=== PATIENT | male | born 1975 | race Asian ===

== ENCOUNTER 2021-08-08 12:49 | Inpatient (IN) ==
[2021-08-08 14:18] LABS: ABS Basophils 0.1 10^3/ul (0-0.2); ABS Lymphocytes 2.2 10^3/ul (1.0-4.8); ABS Monocytes 0.7 10^3/ul (0-0.8); ABS Neutrophils 10.3 10^3/ul (1.5-7.7); Eosinophil % 0.1 %; Hematocrit 29 % (42-52); Hemoglobin 9.8 g/dL (14.0-18.0); Lymphocyte % 16.4 %; Mean Corpuscular HGB Conc 34 g/dL (31-36); Mean Corpuscular Hemoglobin 32 pg (27-31); Mean Corpuscular Volume 94 fL (80-94); Mean Platelet Volume 7.3 fL (7.4-10.4); Nucleated Red Blood Cells % 0.2; Platelet Count 149 10^3/uL (150-450); Red Blood Count 3.08 10^6 /uL (4.18-5.48); Red Cell Distribution Width 17 % (10-15); White Blood Count 13.2 10^3/uL (3.5-10.8)
[2021-08-08 14:23] LABS: INR 1.66 (0.86-1.15)
[2021-08-08 14:37] LABS: ALT 70 U/L (7-52); AST 476 U/L (13-39); Albumin/Globulin Ratio 0.6 (1-3); Alkaline Phosphatase 275 U/L (35-149); Anion Gap 18 mmol/L (2-11); Blood Urea Nitrogen 5 mg/dL (6-24); CO2 Carbon Dioxide 22 mmol/L (22-32); Calcium 7.5 mg/dL (8.6-10.3); Chloride 81 mmol/L (101-111); Globulin 5.3 g/dL (2-4); Glucose 238 mg/dL (70-100); Potassium 3.7 mmol/L (3.5-5.0); Sodium 121 mmol/L (135-145); Total Protein 8.3 g/dL (6.4-8.9); eGFR CKD-EPI 117.3 (>60)
[2021-08-08 14:56] LABS: Acetaminophen < 15 mcg/mL; Alcohol, S 320 mg/dL (<13)
[2021-08-08 15:02] LABS: Indirect Bilirubin 8.6 mg/dL (0.3-1.0)
[2021-08-08] MEDS ORDERED: Iodixanol (CONTRAST) 320 MG/ML 100 ML SDV IV ONE (15:29)
[2021-08-08 15:58] LABS: Total Bilirubin 18.4 mg/dL (0.2-1.0)
[2021-08-08] MEDS ORDERED: Ondansetron 4 mg VIAL 2 MG/ML 2 ml VIAL IV PRN (17:51)
[2021-08-08] MEDS ORDERED: Thiamine 100 MG/ML 2 ml VIAL 100 MG, Folic Acid IV 1 MG, Multiple Vitamin IV ADULT 10 M... IV ONE (18:00)
[2021-08-08] MEDS ORDERED: NS 0.9% 1000 ml BAG 1,000 ML IV SCH (18:00)
[2021-08-08] MEDS ORDERED: Dextrose 50% Syringe 50 ml 25 GM/50 ML SYRINGE IV PUSH PRN (18:45)
[2021-08-08] MEDS ORDERED: PrednisoLONE 3 MG/ML ORAL.SOLU 15 MG/5 ML ORAL.SOLN PO SCH (20:30)
[2021-08-08 20:37] LABS: TSH Ultra Thyroid Stim Horm 8.99 mcIU/mL (0.34-5.60)
[2021-08-08 20:43] LABS: Anion Gap 16 mmol/L (2-11); Blood Urea Nitrogen 5 mg/dL (6-24); CO2 Carbon Dioxide 23 mmol/L (22-32); Calcium 7.2 mg/dL (8.6-10.3); Chloride 83 mmol/L (101-111); Glucose 214 mg/dL (70-100); Potassium 3.7 mmol/L (3.5-5.0); Sodium 122 mmol/L (135-145); eGFR CKD-EPI 116.2 (>60)
[2021-08-08] MEDS ORDERED: Phytonadione Oral Solution 5 MG/25 ML UDC PO ONE (20:44)
[2021-08-08 20:48] LABS: Folate 3.89 ng/mL (5.90-24.80)
[2021-08-08 20:49] LABS: Vitamin B12 > 1450 pg/mL (180-914)
[2021-08-08 21:10] LABS: Phosphorus < 1.0 mg/dL (2.5-5.0)
[2021-08-08 21:16] LABS: Magnesium 1.9 mg/dL (1.9-2.7)
[2021-08-08] MEDS: Lactulose 30 ml UDC PO SCH (21:26)
[2021-08-08] MEDS: Pantoprazole VIAL 40 MG VIAL IV SCH (21:26)
[2021-08-08] MEDS: cefTRIAXone 2 GM ADDV.VIAL 2 GM in NS 0.9% 100 ml BAG 100 ML IV SCH (21:26)
[2021-08-08] MEDS ORDERED: Potassium Phosphate IV 15 MMOLE in NS 0.9% 250 ml 250 ML IVPB ONE ×2 (21:27→21:28)
[2021-08-08] MEDS ORDERED: NS 0.9% 250 ml 0 ML ONE (21:37)
[2021-08-08 21:41] LABS: Hepatitis B Surface Antigen Nonreactive (Nonreactive)
[2021-08-08 21:46] LABS: Hepatitis A Ab IgM Negative (Negative)
[2021-08-08 21:47] LABS: Hepatitis B Core IgM Nonreactive (Nonreactive)
[2021-08-08 21:59] LABS: Hepatitis C Antibody Negative (Negative)
[2021-08-08] MEDS ORDERED: Potassium Phosphate IV 30 MMOLE in NS 0.9% 250 ml 250 ML IVPB ONE (22:00)
[2021-08-08 22:39] LABS: Ferritin 3844.2 ng/mL (24-336)
[2021-08-09 06:22] LABS: INR 1.79 (0.86-1.15)
[2021-08-09 06:25] LABS: Hematocrit 23 % (42-52); Hemoglobin 7.9 g/dL (14.0-18.0); Mean Corpuscular HGB Conc 34 g/dL (31-36); Mean Corpuscular Hemoglobin 32 pg (27-31); Mean Corpuscular Volume 94 fL (80-94); Mean Platelet Volume 8.1 fL (7.4-10.4); Platelet Count 133 10^3/uL (150-450); Red Cell Distribution Width 17 % (10-15)
[2021-08-09 06:37] LABS: Albumin 2.5 g/dL (3.2-5.2); CO2 Carbon Dioxide 19 mmol/L (22-32); Calcium 6.7 mg/dL (8.6-10.3); Chloride 84 mmol/L (101-111)
[2021-08-09 06:42] LABS: ALT 56 U/L (7-52); Albumin/Globulin Ratio 0.6 (1-3); Alkaline Phosphatase 213 U/L (35-149); Anion Gap 14 mmol/L (2-11); Blood Urea Nitrogen 4 mg/dL (6-24); Globulin 4.5 g/dL (2-4); Glucose 231 mg/dL (70-100); Sodium 117 mmol/L (135-145); eGFR CKD-EPI 119.7 (>60)
[2021-08-09 06:44] LABS: ABS Basophils 0.1 10^3/ul (0-0.2); ABS Lymphocytes 1.7 10^3/ul (1.0-4.8); ABS Monocytes 0.3 10^3/ul (0-0.8); ABS Neutrophils 9.9 10^3/ul (1.5-7.7); Lymphocyte % 13.9 %; Nucleated Red Blood Cells % 0.2
[2021-08-09] MEDS ORDERED: Flu vaccine *QUAD* 2021-22* 0.5 ML SYRINGE IM ONE (09:00)
[2021-08-09] MEDS ORDERED: NS 0.9% 1000 ml BAG 1,000 ML IV SCH (09:06)
[2021-08-09] MEDS: Multivitamins/Minerals TAB PO SCH (09:27)
[2021-08-09] MEDS: Lactulose 30 ml UDC PO SCH ×2 (09:29→22:03)
[2021-08-09] MEDS: Pantoprazole VIAL 40 MG VIAL IV SCH ×2 (09:30→23:03)
[2021-08-09] MEDS: Calcium Carb (TUMS) 500 mg CHEW TAB PO SCH (10:31)
[2021-08-09] MEDS ORDERED: Phytonadione Oral Solution 5 MG/25 ML UDC PO ONE (10:44)
[2021-08-09 11:43] LABS: Hepatitis B Surface Ab Indeterminate (Immune)
[2021-08-09 13:55] LABS: Body Fluid Appearance Cloudy; Body Fluid Color Yellow; Body Fluid Source Peritonial Fluid
[2021-08-09 14:17] LABS: Body Fluid WBC 81 /mcL
[2021-08-09 14:27] LABS: Body Fluid Mono 62 %; Body Fluid Other Cells 11; Body Fluid Total Cells Counted 200
[2021-08-09 15:38] LABS: Potassium, Whole Blood 4.7 mmol/L (3.4-4.5)
[2021-08-09 15:58] LABS: Blood Urea Nitrogen 5 mg/dL (6-24); CO2 Carbon Dioxide 24 mmol/L (22-32); Chloride 85 mmol/L (101-111); Glucose 291 mg/dL (70-100); Potassium 4.3 mmol/L (3.5-5.0); eGFR CKD-EPI 106.4 (>60)
[2021-08-09 16:03] LABS: Hematocrit 25 % (42-52); Hemoglobin 8.3 g/dL (14.0-18.0); Mean Corpuscular HGB Conc 34 g/dL (31-36); Mean Corpuscular Hemoglobin 31 pg (27-31); Mean Corpuscular Volume 93 fL (80-94); Mean Platelet Volume 7.7 fL (7.4-10.4); Platelet Count 133 10^3/uL (150-450); Red Blood Count 2.65 10^6 /uL (4.18-5.48); Red Cell Distribution Width 18 % (10-15); White Blood Count 11.7 10^3/uL (3.5-10.8)
[2021-08-09 16:04] LABS: LDH 289 U/L (140-271)
[2021-08-09 16:10] LABS: Anion Gap 10 mmol/L (2-11); Magnesium 1.7 mg/dL (1.9-2.7); Phosphorus < 1.0 mg/dL (2.5-5.0); Sodium 119 mmol/L (135-145)
[2021-08-09 16:25] LABS: Urine Appearance Clear; Urine Bacteria 1+ (Absent); Urine Bilirubin 2+ (Negative); Urine Blood 2+ (Negative); Urine Color Amber; Urine Glucose 3+(>=500 mg/dL) (Negative); Urine Ketones 1+ (Negative); Urine Nitrite Negative (Negative); Urine Protein 2+(100 mg/dL) (Negative); Urine Red Blood Cell 2+(6-10/hpf) (Absent); Urine Specific Gravity 1.029 (1.002-1.030); Urine Squamous Epithelial Cell Present (Absent); Urine Urobilinogen Positive (Negative); Urine White Blood Cell 1+(6-10/hpf) (Absent)
[2021-08-09] MEDS ORDERED: Potassium & Sodium Phos 250 mg = 1 PACKET PO ONE (16:28)
[2021-08-09] MEDS ORDERED: Magnesium Sulfate IV 3 GM in NS 0.9% 100 ml BAG 100 ML IVPB ONE (16:28)
[2021-08-09] MEDS ORDERED: Potassium Phosphate IV 15 MMOLE in NS 0.9% 250 ml 250 ML IVPB ONE (17:00)
[2021-08-09 17:19] LABS: ABS Lymphocytes 0.8 10^3/ul (1.0-4.8); ABS Neutrophils 10.2 10^3/ul (1.5-7.7)
[2021-08-09] MEDS: cefTRIAXone 2 GM ADDV.VIAL 2 GM in NS 0.9% 100 ml BAG 100 ML IV SCH (23:03)
[2021-08-09 23:25] LABS: Anion Gap 8 mmol/L (2-11); Blood Urea Nitrogen 5 mg/dL (6-24); CO2 Carbon Dioxide 26 mmol/L (22-32); Calcium 6.9 mg/dL (8.6-10.3); Chloride 88 mmol/L (101-111); Glucose 244 mg/dL (70-100); Sodium 122 mmol/L (135-145); eGFR CKD-EPI 112.7 (>60)
[2021-08-09 23:28] LABS: Magnesium 2.5 mg/dL (1.9-2.7)
[2021-08-09 23:30] LABS: Phosphorus < 1.0 mg/dL (2.5-5.0)
[2021-08-10] MEDS ORDERED: Potassium Phosphate IV 30 MMOLE in NS 0.9% 250 ml 250 ML IVPB ONE (00:30)
[2021-08-10] MEDS ORDERED: Calcium Gluconate 4 GM in NS 0.9% 250 ml 250 ML IVPB ONE (01:51)
[2021-08-10] MEDS ORDERED: NS 0.9% 1000 ml BAG 1,000 ML IV SCH (01:52)
[2021-08-10 06:49] LABS: Albumin 2.4 g/dL (3.2-5.2); Albumin/Globulin Ratio 0.6 (1-3); Calcium 6.6 mg/dL (8.6-10.3); Phosphorus 1.7 mg/dL (2.5-5.0); Potassium 3.7 mmol/L (3.5-5.0); Total Protein 6.4 g/dL (6.4-8.9); eGFR CKD-EPI 113.2 (>60)
[2021-08-10 06:57] LABS: Total Bilirubin 17.4 mg/dL (0.2-1.0)
[2021-08-10 07:04] LABS: Hematocrit 24 % (42-52); Hemoglobin 8.3 g/dL (14.0-18.0); Mean Corpuscular HGB Conc 35 g/dL (31-36); Mean Corpuscular Hemoglobin 33 pg (27-31); Mean Corpuscular Volume 95 fL (80-94); Mean Platelet Volume 7.8 fL (7.4-10.4); Platelet Count 123 10^3/uL (150-450); Red Blood Count 2.51 10^6 /uL (4.18-5.48); Red Cell Distribution Width 18 % (10-15); White Blood Count 10.6 10^3/uL (3.5-10.8)
[2021-08-10 07:10] LABS: Magnesium 2.3 mg/dL (1.9-2.7)
[2021-08-10] MEDS ORDERED: Potassium Phosphate IV 15 MMOLE in NS 0.9% 250 ml 250 ML IVPB ONE ×3 (07:30→19:47)
[2021-08-10 08:23] LABS: Anisocytosis 2+
[2021-08-10 08:25] LABS: ABS Lymphocytes 0.5 10^3/ul (1.0-4.8); ABS Neutrophils 8.8 10^3/ul (1.5-7.7)
[2021-08-10] MEDS ORDERED: Phytonadione Oral Solution 5 MG/25 ML UDC PO SCH (09:00)
[2021-08-10] MEDS: Pantoprazole VIAL 40 MG VIAL IV SCH ×2 (09:54→20:18)
[2021-08-10] MEDS: Lactulose 30 ml UDC PO SCH ×2 (09:54→20:17)
[2021-08-10] MEDS: Calcium Carb (TUMS) 500 mg CHEW TAB PO SCH (09:58)
[2021-08-10] MEDS: Multivitamins/Minerals TAB PO SCH (09:58)
[2021-08-10 11:48] LABS: % Iron Saturation > 90 % (14 - 50); Total Iron Binding Capacity 92 mcg/dL (250 - 400); Transferrin 78 mg/dL (200 - 360)
[2021-08-10 18:34] LABS: Anion Gap 9 mmol/L (2-11); Blood Urea Nitrogen 7 mg/dL (6-24); CO2 Carbon Dioxide 25 mmol/L (22-32); Calcium 7.2 mg/dL (8.6-10.3); Chloride 93 mmol/L (101-111); Glucose 203 mg/dL (70-100); Potassium 3.7 mmol/L (3.5-5.0); Sodium 127 mmol/L (135-145)
[2021-08-10 18:38] LABS: Magnesium 2.2 mg/dL (1.9-2.7); Phosphorus < 1.0 mg/dL (2.5-5.0)
[2021-08-10] MEDS: Potassium & Sodium Phos 250 mg = 1 PACKET PO SCH (20:18)
[2021-08-10] MEDS: cefTRIAXone 2 GM ADDV.VIAL 2 GM in NS 0.9% 100 ml BAG 100 ML IV SCH (20:22)
[2021-08-11 07:27] LABS: ABS Basophils 0.1 10^3/ul (0-0.2); ABS Lymphocytes 1.1 10^3/ul (1.0-4.8); ABS Monocytes 0.9 10^3/ul (0-0.8); ABS Neutrophils 9.4 10^3/ul (1.5-7.7); Eosinophil % 0.2 %; Hematocrit 27 % (42-52); Lymphocyte % 9.2 %; Mean Corpuscular HGB Conc 34 g/dL (31-36); Mean Corpuscular Hemoglobin 33 pg (27-31); Mean Corpuscular Volume 98 fL (80-94); Mean Platelet Volume 7.7 fL (7.4-10.4); Nucleated Red Blood Cells % 0.4; Platelet Count 138 10^3/uL (150-450); Red Blood Count 2.74 10^6 /uL (4.18-5.48); Red Cell Distribution Width 19 % (10-15); White Blood Count 11.4 10^3/uL (3.5-10.8)
[2021-08-11 07:46] LABS: Albumin 2.6 g/dL (3.2-5.2); Albumin/Globulin Ratio 0.6 (1-3); Calcium 7.1 mg/dL (8.6-10.3); Globulin 4.7 g/dL (2-4); Phosphorus 1.2 mg/dL (2.5-5.0); Potassium 3.7 mmol/L (3.5-5.0); Total Protein 7.3 g/dL (6.4-8.9); eGFR CKD-EPI 108.8 (>60)
[2021-08-11 08:17] LABS: Magnesium 2.2 mg/dL (1.9-2.7)
[2021-08-11] MEDS: Potassium & Sodium Phos 250 mg = 1 PACKET PO SCH ×4 (09:00→19:39)
[2021-08-11] MEDS: Lactulose 30 ml UDC PO SCH ×2 (09:00→19:39)
[2021-08-11] MEDS: Multivitamins/Minerals TAB PO SCH (09:02)
[2021-08-11] MEDS: Pantoprazole VIAL 40 MG VIAL IV SCH (09:02)
[2021-08-11] MEDS: Calcium Carb (TUMS) 500 mg CHEW TAB PO SCH (09:02)
[2021-08-11] MEDS ORDERED: Potassium Phosphate IV 15 MMOLE in NS 0.9% 250 ml 250 ML IVPB ONE ×2 (10:15→19:54)
[2021-08-11 11:25] LABS: INR 1.88 (0.86-1.15)
[2021-08-11 12:57] LABS: Urine Appearance Turbid; Urine Bilirubin 2+ (Negative); Urine Blood 1+ (Negative); Urine Color Amber; Urine Glucose 2+(150 mg/dL) (Negative); Urine Ketones Trace (Negative); Urine Nitrite Negative (Negative); Urine Protein 2+(100 mg/dL) (Negative); Urine Urobilinogen Positive (Negative)
[2021-08-11 13:19] LABS: Urine Bacteria 3+ (Absent); Urine Red Blood Cell 3+(>10/hpf) (Absent); Urine Squamous Epithelial Cell Present (Absent); Urine White Blood Cell Trace(0-5/hpf) (Absent)
[2021-08-11 13:25] LABS: Lactate Dehydrogenase, BF 76 U/L
[2021-08-11 15:02] LABS: Glucose, BF 272 mg/dL
[2021-08-11 15:05] LABS: Fluid Type, Protein, Total PERITONEAL; Total Protein, BF 1.3 g/dL
[2021-08-11] MEDS ORDERED: Furosemide 20 mg/2 ml IV VIAL IV ONE (17:50)
[2021-08-11] MEDS ORDERED: Iodixanol (CONTRAST) 320 MG/ML 100 ML SDV IV ONE (18:22)
[2021-08-11 19:40] LABS: Calcium 6.9 mg/dL (8.6-10.3); Phosphorus 1.1 mg/dL (2.5-5.0); Potassium 3.6 mmol/L (3.5-5.0); eGFR CKD-EPI 107.2 (>60)
[2021-08-11] MEDS: cefTRIAXone 2 GM ADDV.VIAL 2 GM in NS 0.9% 100 ml BAG 100 ML IV SCH (19:43)
[2021-08-12 07:13] LABS: Albumin 2.4 g/dL (3.2-5.2); Albumin/Globulin Ratio 0.6 (1-3); Calcium 6.9 mg/dL (8.6-10.3); Globulin 4.2 g/dL (2-4); Phosphorus 1.9 mg/dL (2.5-5.0); Potassium 3.8 mmol/L (3.5-5.0); Total Protein 6.6 g/dL (6.4-8.9); eGFR CKD-EPI 109.2 (>60)
[2021-08-12 07:23] LABS: Total Bilirubin 21.8 mg/dL (0.2-1.0)
[2021-08-12] MEDS: Multivitamins/Minerals TAB PO SCH (08:32)
[2021-08-12] MEDS: Potassium & Sodium Phos 250 mg = 1 PACKET PO SCH ×4 (08:32→20:06)
[2021-08-12] MEDS: Calcium Carb (TUMS) 500 mg CHEW TAB PO SCH (08:32)
[2021-08-12] MEDS: Lactulose 30 ml UDC PO SCH ×2 (08:32→20:08)
[2021-08-12 11:47] LABS: Albumin, BF 0.6 g/dL; Fluid Type, Albumin PERITONEAL
[2021-08-12 12:31] LABS: ABS Basophils 0.1 10^3/ul (0-0.2); ABS Lymphocytes 1.1 10^3/ul (1.0-4.8); Eosinophil % 0.4 %; Hematocrit 25 % (42-52); Hemoglobin 8.5 g/dL (14.0-18.0); Lymphocyte % 9.2 %; Mean Corpuscular HGB Conc 34 g/dL (31-36); Mean Corpuscular Hemoglobin 34 pg (27-31); Mean Corpuscular Volume 99 fL (80-94); Mean Platelet Volume 7.5 fL (7.4-10.4); Nucleated Red Blood Cells % 0.2; Platelet Count 128 10^3/uL (150-450); Red Blood Count 2.52 10^6 /uL (4.18-5.48); Red Cell Distribution Width 21 % (10-15); White Blood Count 12.2 10^3/uL (3.5-10.8)
[2021-08-12 18:33] LABS: Free T4 0.83 ng/dL (0.61-1.12)
[2021-08-12] MEDS: cefTRIAXone 2 GM ADDV.VIAL 2 GM in NS 0.9% 100 ml BAG 100 ML IV SCH (20:09)
[2021-08-13 05:50] LABS: ABS Eosinophils 0.1 10^3/ul (0-0.6); ABS Lymphocytes 1.2 10^3/ul (1.0-4.8); ABS Neutrophils 10.2 10^3/ul (1.5-7.7); Eosinophil % 0.7 %; Hematocrit 24 % (42-52); Hemoglobin 7.9 g/dL (14.0-18.0); Lymphocyte % 9.7 %; Mean Corpuscular HGB Conc 33 g/dL (31-36); Mean Corpuscular Hemoglobin 33 pg (27-31); Mean Corpuscular Volume 100 fL (80-94); Mean Platelet Volume 7.5 fL (7.4-10.4); Nucleated Red Blood Cells % 0.1; Platelet Count 126 10^3/uL (150-450); Red Blood Count 2.39 10^6 /uL (4.18-5.48); Red Cell Distribution Width 22 % (10-15); White Blood Count 12.5 10^3/uL (3.5-10.8)
[2021-08-13 06:06] LABS: Albumin 2.3 g/dL (3.2-5.2); Albumin/Globulin Ratio 0.5 (1-3); Calcium 6.6 mg/dL (8.6-10.3); Globulin 4.3 g/dL (2-4); Potassium 3.5 mmol/L (3.5-5.0); Total Protein 6.6 g/dL (6.4-8.9)
[2021-08-13 06:09] LABS: Magnesium 1.9 mg/dL (1.9-2.7)
[2021-08-13 06:31] LABS: Total Bilirubin 22.6 mg/dL (0.2-1.0)
[2021-08-13 06:37] LABS: Phosphorus 1.7 mg/dL (2.5-5.0)
[2021-08-13] MEDS ORDERED: Potassium Phosphate IV 15 MMOLE in NS 0.9% 250 ml 250 ML IVPB ONE (08:07)
[2021-08-13] MEDS: Lactulose 30 ml UDC PO SCH ×2 (10:13→21:08)
[2021-08-13] MEDS: Calcium Carb (TUMS) 500 mg CHEW TAB PO SCH (10:15)
[2021-08-13] MEDS: Multivitamins/Minerals TAB PO SCH (10:15)
[2021-08-13] MEDS: Potassium & Sodium Phos 250 mg = 1 PACKET PO SCH ×4 (10:16→21:10)
[2021-08-13] MEDS ORDERED: Potassium Chlor 20 meq TAB.ER PO ONE (16:34)
[2021-08-13] MEDS: cefTRIAXone 2 GM ADDV.VIAL 2 GM in NS 0.9% 100 ml BAG 100 ML IV SCH (21:04)
[2021-08-14 08:17] LABS: ABS Basophils 0.1 10^3/ul (0-0.2); ABS Eosinophils 0.1 10^3/ul (0-0.6); ABS Lymphocytes 1.1 10^3/ul (1.0-4.8); ABS Monocytes 1.4 10^3/ul (0-0.8); ABS Neutrophils 9.3 10^3/ul (1.5-7.7); Eosinophil % 0.8 %; Hematocrit 25 % (42-52); Hemoglobin 8.5 g/dL (14.0-18.0); Lymphocyte % 9.4 %; Mean Corpuscular HGB Conc 33 g/dL (31-36); Mean Corpuscular Hemoglobin 34 pg (27-31); Mean Corpuscular Volume 102 fL (80-94); Mean Platelet Volume 7.9 fL (7.4-10.4); Nucleated Red Blood Cells % 0.1; Platelet Count 139 10^3/uL (150-450); Red Cell Distribution Width 23 % (10-15)
[2021-08-14 08:31] LABS: Albumin 2.2 g/dL (3.2-5.2); Potassium 3.7 mmol/L (3.5-5.0)
[2021-08-14 08:37] LABS: Albumin/Globulin Ratio 0.5 (1-3); Calcium 6.4 mg/dL (8.6-10.3); Globulin 4.2 g/dL (2-4); Total Bilirubin 23.4 mg/dL (0.2-1.0); Total Protein 6.4 g/dL (6.4-8.9); eGFR CKD-EPI 102.6 (>60)
[2021-08-14 08:40] LABS: Magnesium 1.9 mg/dL (1.9-2.7)
[2021-08-14] MEDS: Potassium & Sodium Phos 250 mg = 1 PACKET PO SCH ×4 (09:00→20:41)
[2021-08-14] MEDS: Calcium Carb (TUMS) 500 mg CHEW TAB PO SCH (09:02)
[2021-08-14] MEDS: Multivitamins/Minerals TAB PO SCH (09:02)
[2021-08-14] MEDS: Lactulose 30 ml UDC PO SCH (09:04)
[2021-08-14] MEDS ORDERED: Enoxaparin 40 MG/0.4 ML SYR SUBCUT SCH (17:00)
[2021-08-15 06:08] LABS: Albumin 2.2 g/dL (3.2-5.2); Albumin/Globulin Ratio 0.6 (1-3); Phosphorus 1.6 mg/dL (2.5-5.0); Potassium 3.5 mmol/L (3.5-5.0); Total Protein 6.2 g/dL (6.4-8.9); eGFR CKD-EPI 96.3 (>60)
[2021-08-15 06:13] LABS: Calcium 6.2 mg/dL (8.6-10.3); Magnesium 1.8 mg/dL (1.9-2.7); Total Bilirubin 23.4 mg/dL (0.2-1.0)
[2021-08-15] MEDS ORDERED: Magnesium Sulf 4 GM/100 ML IV 4,000 MG/100 ML BAG IVPB ONE (06:17)
[2021-08-15] MEDS ORDERED: Potassium Phosphate IV 30 MMOLE in NS 0.9% 250 ml 250 ML IVPB ONE (06:45)
[2021-08-15] MEDS: Potassium & Sodium Phos 250 mg = 1 PACKET PO SCH ×4 (08:24→19:44)
[2021-08-15] MEDS: Calcium Carb (TUMS) 500 mg CHEW TAB PO SCH (08:24)
[2021-08-15] MEDS: Multivitamins/Minerals TAB PO SCH (08:25)
[2021-08-15 10:49] LABS: ABS Eosinophils 0.1 10^3/ul (0-0.6); ABS Lymphocytes 1.6 10^3/ul (1.0-4.8); ABS Monocytes 1.3 10^3/ul (0-0.8); ABS Neutrophils 10.1 10^3/ul (1.5-7.7); Eosinophil % 0.4 %; Hematocrit 27 % (42-52); Hemoglobin 8.8 g/dL (14.0-18.0); Lymphocyte % 12.3 %; Mean Corpuscular HGB Conc 33 g/dL (31-36); Mean Corpuscular Hemoglobin 34 pg (27-31); Mean Corpuscular Volume 102 fL (80-94); Mean Platelet Volume 8.1 fL (7.4-10.4); Nucleated Red Blood Cells % 0.1; Platelet Count 172 10^3/uL (150-450); Red Blood Count 2.63 10^6 /uL (4.18-5.48); Red Cell Distribution Width 23 % (10-15); White Blood Count 13.2 10^3/uL (3.5-10.8)
[2021-08-15 14:42] LABS: ABS Basophils 0.2 10^3/ul (0-0.2); ABS Eosinophils 0.1 10^3/ul (0-0.6); ABS Lymphocytes 1.6 10^3/ul (1.0-4.8); ABS Monocytes 1.3 10^3/ul (0-0.8); ABS Neutrophils 10.6 10^3/ul (1.5-7.7); Eosinophil % 0.4 %; Hematocrit 26 % (42-52); Hemoglobin 8.3 g/dL (14.0-18.0); Lymphocyte % 11.9 %; Mean Corpuscular HGB Conc 32 g/dL (31-36); Mean Corpuscular Hemoglobin 33 pg (27-31); Mean Corpuscular Volume 102 fL (80-94); Mean Platelet Volume 7.6 fL (7.4-10.4); Nucleated Red Blood Cells % 0.1; Platelet Count 170 10^3/uL (150-450); Red Cell Distribution Width 22 % (10-15); White Blood Count 13.7 10^3/uL (3.5-10.8)
[2021-08-16 06:11] LABS: Hematocrit 25 % (42-52); Hemoglobin 8.2 g/dL (14.0-18.0); Mean Corpuscular HGB Conc 32 g/dL (31-36); Mean Corpuscular Hemoglobin 33 pg (27-31); Mean Corpuscular Volume 102 fL (80-94); Mean Platelet Volume 7.7 fL (7.4-10.4); Platelet Count 173 10^3/uL (150-450); Red Blood Count 2.48 10^6 /uL (4.18-5.48); Red Cell Distribution Width 22 % (10-15); White Blood Count 15.3 10^3/uL (3.5-10.8)
[2021-08-16 06:29] LABS: ABS Basophils 0.2 10^3/ul (0-0.2); ABS Eosinophils 0.1 10^3/ul (0-0.6); ABS Lymphocytes 1.1 10^3/ul (1.0-4.8); ABS Monocytes 1.7 10^3/ul (0-0.8); ABS Neutrophils 12.3 10^3/ul (1.5-7.7); Eosinophil % 0.4 %; Lymphocyte % 7.4 %; Nucleated Red Blood Cells % 0.1
[2021-08-16 06:37] LABS: Albumin 2.1 g/dL (3.2-5.2); Albumin/Globulin Ratio 0.5 (1-3); Globulin 4.2 g/dL (2-4); Phosphorus 2.1 mg/dL (2.5-5.0); Potassium 3.7 mmol/L (3.5-5.0); Total Protein 6.3 g/dL (6.4-8.9); eGFR CKD-EPI 95.1 (>60)
[2021-08-16 06:46] LABS: Calcium 6.1 mg/dL (8.6-10.3); Magnesium 2.5 mg/dL (1.9-2.7); Total Bilirubin 23.8 mg/dL (0.2-1.0)
[2021-08-16] MEDS: Potassium & Sodium Phos 250 mg = 1 PACKET PO SCH ×4 (08:04→19:56)
[2021-08-16] MEDS: Calcium Carb (TUMS) 500 mg CHEW TAB PO SCH (08:04)
[2021-08-16] MEDS: Multivitamins/Minerals TAB PO SCH (08:05)
[2021-08-16 09:44] LABS: C Reactive Protein 80.64 mg/L (<8.01)
[2021-08-16 10:45] LABS: INR 1.94 (0.86-1.15)
[2021-08-16 10:51] LABS: Erythrocyte Sed Rate 115 mm/Hr (0-14)
[2021-08-17 05:44] LABS: Hematocrit 25 % (42-52); Hemoglobin 8.1 g/dL (14.0-18.0); Mean Corpuscular HGB Conc 33 g/dL (31-36); Mean Corpuscular Hemoglobin 33 pg (27-31); Mean Corpuscular Volume 101 fL (80-94); Platelet Count 183 10^3/uL (150-450); Red Blood Count 2.44 10^6 /uL (4.18-5.48); Red Cell Distribution Width 21 % (10-15); White Blood Count 17.4 10^3/uL (3.5-10.8)
[2021-08-17 05:49] LABS: INR 1.9 (0.86-1.15)
[2021-08-17 05:50] LABS: ABS Basophils 0.1 10^3/ul (0-0.2); ABS Lymphocytes 1.2 10^3/ul (1.0-4.8); ABS Monocytes 1.6 10^3/ul (0-0.8); ABS Neutrophils 14.5 10^3/ul (1.5-7.7); Eosinophil % 0.1 %; Nucleated Red Blood Cells % 0.1
[2021-08-17 06:02] LABS: Albumin 2.1 g/dL (3.2-5.2); Albumin/Globulin Ratio 0.5 (1-3); Globulin 4.3 g/dL (2-4); Potassium 3.9 mmol/L (3.5-5.0); Total Protein 6.4 g/dL (6.4-8.9); eGFR CKD-EPI 101.3 (>60)
[2021-08-17 06:16] LABS: Calcium 6.1 mg/dL (8.6-10.3); Total Bilirubin 23.1 mg/dL (0.2-1.0)
[2021-08-17] MEDS: Calcium Carb (TUMS) 500 mg CHEW TAB PO SCH (08:22)
[2021-08-17] MEDS: Potassium & Sodium Phos 250 mg = 1 PACKET PO SCH ×4 (08:22→19:45)
[2021-08-17] MEDS: Multivitamins/Minerals TAB PO SCH (08:24)
[2021-08-17] MEDS ORDERED: Insulin GLARGINE 100 un/ml 10 ml VIAL SUBCUT SCH (21:00)
[2021-08-18 06:40] LABS: ABS Basophils 0.1 10^3/ul (0-0.2); ABS Lymphocytes 1.6 10^3/ul (1.0-4.8); ABS Monocytes 1.4 10^3/ul (0-0.8); ABS Neutrophils 15.6 10^3/ul (1.5-7.7); Eosinophil % 0.2 %; Hematocrit 28 % (42-52); Hemoglobin 9.1 g/dL (14.0-18.0); Lymphocyte % 8.4 %; Mean Corpuscular HGB Conc 33 g/dL (31-36); Mean Corpuscular Hemoglobin 34 pg (27-31); Mean Corpuscular Volume 103 fL (80-94); Mean Platelet Volume 8.2 fL (7.4-10.4); Platelet Count 216 10^3/uL (150-450); Red Blood Count 2.66 10^6 /uL (4.18-5.48); Red Cell Distribution Width 21 % (10-15); White Blood Count 18.7 10^3/uL (3.5-10.8)
[2021-08-18 06:52] LABS: INR 1.8 (0.86-1.15)
[2021-08-18 06:59] LABS: Albumin 2.2 g/dL (3.2-5.2); Albumin/Globulin Ratio 0.5 (1-3); Globulin 4.5 g/dL (2-4); Potassium 3.9 mmol/L (3.5-5.0); Total Protein 6.7 g/dL (6.4-8.9); eGFR CKD-EPI 89.6 (>60)
[2021-08-18 07:08] LABS: Calcium 6.1 mg/dL (8.6-10.3); Total Bilirubin 22.7 mg/dL (0.2-1.0)
[2021-08-18] MEDS ORDERED: CALCIUM GLUCONATE 1GM/50ML NS 1 GM/50 ML BAG IV ONE (08:05)
[2021-08-18] MEDS: Multivitamins/Minerals TAB PO SCH (08:20)
[2021-08-18] MEDS: Potassium & Sodium Phos 250 mg = 1 PACKET PO SCH ×2 (08:21→11:51)
[2021-08-18] MEDS: Calcium Carb (TUMS) 500 mg CHEW TAB PO SCH (08:21)
[2021-08-18 09:16] LABS: Phosphorus 3.2 mg/dL (2.5-5.0)
[2021-08-18 09:18] LABS: Magnesium 2.1 mg/dL (1.9-2.7)
[2021-08-18] MEDS: Calcium/Vitamin D TAB 250/125 TAB PO SCH (21:31)
[2021-08-18] MEDS: Insulin GLARGINE 100 un/ml 10 ml VIAL SUBCUT SCH (21:39)
[2021-08-19 08:06] LABS: Hematocrit 29 % (42-52); Hemoglobin 9.4 g/dL (14.0-18.0); Mean Corpuscular HGB Conc 33 g/dL (31-36); Mean Corpuscular Hemoglobin 33 pg (27-31); Mean Corpuscular Volume 102 fL (80-94); Mean Platelet Volume 7.8 fL (7.4-10.4); Platelet Count 240 10^3/uL (150-450); Red Blood Count 2.81 10^6 /uL (4.18-5.48); Red Cell Distribution Width 20 % (10-15); White Blood Count 25.2 10^3/uL (3.5-10.8)
[2021-08-19 08:17] LABS: INR 1.79 (0.86-1.15)
[2021-08-19 08:32] LABS: Albumin 2.2 g/dL (3.2-5.2); Albumin/Globulin Ratio 0.5 (1-3); Calcium 6.6 mg/dL (8.6-10.3); Globulin 4.7 g/dL (2-4); Potassium 3.8 mmol/L (3.5-5.0); Total Protein 6.9 g/dL (6.4-8.9); eGFR CKD-EPI 89.6 (>60)
[2021-08-19 09:08] LABS: Total Bilirubin 23.4 mg/dL (0.2-1.0)
[2021-08-19] MEDS ORDERED: Furosemide 40 mg/4 ml IV VIAL IV ONE (09:36)
[2021-08-19 09:43] LABS: Total Bilirubin 23.4 mg/dL (0.2-1.0)
[2021-08-19] MEDS: Multivitamins/Minerals TAB PO SCH (10:29)
[2021-08-19] MEDS: Calcium Carb (TUMS) 500 mg CHEW TAB PO SCH (10:30)
[2021-08-19] MEDS: Calcium/Vitamin D TAB 250/125 TAB PO SCH ×2 (10:53→21:02)
[2021-08-19 15:49] LABS: Calcium 6.6 mg/dL (8.6-10.3); Potassium 3.8 mmol/L (3.5-5.0); eGFR CKD-EPI 77.7 (>60)
[2021-08-19] MEDS: Insulin GLARGINE 100 un/ml 10 ml VIAL SUBCUT SCH (21:02)
[2021-08-20 08:09] LABS: Hematocrit 28 % (42-52); Hemoglobin 9.2 g/dL (14.0-18.0); Mean Corpuscular HGB Conc 33 g/dL (31-36); Mean Corpuscular Hemoglobin 34 pg (27-31); Mean Corpuscular Volume 101 fL (80-94); Mean Platelet Volume 7.9 fL (7.4-10.4); Platelet Count 248 10^3/uL (150-450); Red Blood Count 2.75 10^6 /uL (4.18-5.48); Red Cell Distribution Width 19 % (10-15); White Blood Count 26.5 10^3/uL (3.5-10.8)
[2021-08-20] MEDS: Multivitamins/Minerals TAB PO SCH (08:18)
[2021-08-20] MEDS: Calcium Carb (TUMS) 500 mg CHEW TAB PO SCH (08:18)
[2021-08-20] MEDS: Calcium/Vitamin D TAB 250/125 TAB PO SCH ×2 (08:18→20:09)
[2021-08-20 08:21] LABS: INR 1.92 (0.86-1.15)
[2021-08-20 08:24] LABS: Albumin 2.1 g/dL (3.2-5.2); Albumin/Globulin Ratio 0.5 (1-3); Calcium 6.6 mg/dL (8.6-10.3); Globulin 4.3 g/dL (2-4); Potassium 3.8 mmol/L (3.5-5.0); Total Protein 6.4 g/dL (6.4-8.9); eGFR CKD-EPI 90.7 (>60)
[2021-08-20 08:47] LABS: Total Bilirubin 22.5 mg/dL (0.2-1.0)
[2021-08-20] MEDS ORDERED: Potassium Chlor 20 meq TAB.ER PO ONE (08:58)
[2021-08-20] MEDS ORDERED: Bumetanide IV 0.25 MG/ML 4 ml VIAL (1 mg) SLOW PUSH ONE (09:00)
[2021-08-20 09:51] LABS: ABS Basophils 0.1 10^3/ul (0-0.2); ABS Lymphocytes 1.1 10^3/ul (1.0-4.8); ABS Monocytes 1.3 10^3/ul (0-0.8); ABS Neutrophils 23.9 10^3/ul (1.5-7.7); Eosinophil % 0.2 %; Lymphocyte % 4.3 %
[2021-08-20 10:18] LABS: Urine Specific Gravity 1.015 (1.002-1.030)
[2021-08-20 10:19] LABS: * N (Negative); Urine Bilirubin 3+ (Negative); Urine Blood N (Negative); Urine Ketones Negative (Negative); Urine Nitrite N (Negative); Urine Protein 1 (Negative); Urine Urobilinogen N (Negative)
[2021-08-20 10:20] LABS: Urine Glucose N (Negative)
[2021-08-20 10:21] LABS: Urine Appearance Clear; Urine Color Straw
[2021-08-20] MEDS ORDERED: Lactulose 30 ml UDC PO PRN (11:33)
[2021-08-20] MEDS ORDERED: Lactulose 30 ml UDC PO ONE (11:33)
[2021-08-20] MEDS ORDERED: Furosemide 100 mg/10 ml IV VIAL IV ONE ×2 (16:18→17:10)
[2021-08-20 16:54] LABS: Calcium 6.7 mg/dL (8.6-10.3); eGFR CKD-EPI 71.7 (>60)
[2021-08-20 16:57] LABS: Potassium 4.8 mmol/L (3.5-5.0)
[2021-08-20] MEDS: Insulin GLARGINE 100 un/ml 10 ml VIAL SUBCUT SCH (20:09)
[2021-08-21 07:07] LABS: Hematocrit 30 % (42-52); Hemoglobin 9.9 g/dL (14.0-18.0); Mean Corpuscular HGB Conc 33 g/dL (31-36); Mean Corpuscular Hemoglobin 34 pg (27-31); Mean Corpuscular Volume 102 fL (80-94); Platelet Count 304 10^3/uL (150-450); Red Blood Count 2.94 10^6 /uL (4.18-5.48); Red Cell Distribution Width 18 % (10-15); White Blood Count 27.9 10^3/uL (3.5-10.8)
[2021-08-21 07:23] LABS: Albumin 2.4 g/dL (3.2-5.2); Albumin/Globulin Ratio 0.5 (1-3); Calcium 7.1 mg/dL (8.6-10.3); Globulin 4.6 g/dL (2-4); Potassium 3.8 mmol/L (3.5-5.0); eGFR CKD-EPI 73.9 (>60)
[2021-08-21 07:52] LABS: Total Bilirubin 24.9 mg/dL (0.2-1.0)
[2021-08-21 07:56] LABS: ABS Basophils 0.1 10^3/ul (0-0.2); ABS Eosinophils 0.1 10^3/ul (0-0.6); ABS Lymphocytes 1.6 10^3/ul (1.0-4.8); ABS Monocytes 1.3 10^3/ul (0-0.8); ABS Neutrophils 24.8 10^3/ul (1.5-7.7); Eosinophil % 0.4 %; Lymphocyte % 5.8 %
[2021-08-21] MEDS: Calcium Carb (TUMS) 500 mg CHEW TAB PO SCH (08:08)
[2021-08-21] MEDS: Multivitamins/Minerals TAB PO SCH (08:09)
[2021-08-21] MEDS: Calcium/Vitamin D TAB 250/125 TAB PO SCH ×2 (08:09→21:13)
[2021-08-21 10:11] LABS: INR 1.88 (0.86-1.15)
[2021-08-21] MEDS: Insulin GLARGINE 100 un/ml 10 ml VIAL SUBCUT SCH (21:13)
[2021-08-22 05:58] LABS: Hematocrit 30 % (42-52); Mean Corpuscular HGB Conc 34 g/dL (31-36); Mean Corpuscular Hemoglobin 34 pg (27-31); Mean Corpuscular Volume 102 fL (80-94); Mean Platelet Volume 7.9 fL (7.4-10.4); Platelet Count 278 10^3/uL (150-450); Red Blood Count 2.92 10^6 /uL (4.18-5.48); Red Cell Distribution Width 18 % (10-15); White Blood Count 24.3 10^3/uL (3.5-10.8)
[2021-08-22 06:04] LABS: INR 1.94 (0.86-1.15)
[2021-08-22 06:17] LABS: Albumin 2.3 g/dL (3.2-5.2); Albumin/Globulin Ratio 0.5 (1-3); Globulin 4.3 g/dL (2-4); Potassium 3.7 mmol/L (3.5-5.0); Total Protein 6.6 g/dL (6.4-8.9); eGFR CKD-EPI 75.3 (>60)
[2021-08-22] MEDS: Multivitamins/Minerals TAB PO SCH (09:07)
[2021-08-22] MEDS: Calcium Carb (TUMS) 500 mg CHEW TAB PO SCH (09:07)
[2021-08-22] MEDS: Calcium/Vitamin D TAB 250/125 TAB PO SCH ×2 (09:07→21:34)
[2021-08-22] MEDS ORDERED: Albumin Human 25% 25 GM/100 ML BTL IV SCH (11:00)
[2021-08-22 11:41] LABS: Body Fluid WBC 67 /mcL
[2021-08-22 11:44] LABS: Body Fluid Appearance Bloody; Body Fluid Color Red; Body Fluid Source Peritonial Fluid
[2021-08-22] MEDS ORDERED: Silver Nitrate/Potassium Nitr 1 PAK (1 PAK PER PATIENT) ONE (12:07)
[2021-08-22] MEDS ORDERED: Silver Nitrate/Potassium Nitr 1 PAK (1 PAK PER PATIENT) TOPICAL ONE (12:15)
[2021-08-22] MEDS ORDERED: Iodixanol (CONTRAST) 320 MG/ML 100 ML SDV IV ONE (12:45)
[2021-08-22 13:01] LABS: Hematocrit 31 % (42-52); Hemoglobin 10.1 g/dL (14.0-18.0); Mean Corpuscular HGB Conc 32 g/dL (31-36); Mean Corpuscular Hemoglobin 33 pg (27-31); Mean Corpuscular Volume 103 fL (80-94); Platelet Count 265 10^3/uL (150-450); Red Blood Count 3.01 10^6 /uL (4.18-5.48); Red Cell Distribution Width 17 % (10-15); White Blood Count 23.6 10^3/uL (3.5-10.8)
[2021-08-22 13:31] LABS: Body Fluid Mono 9 %; Body Fluid Total Cells Counted 200
[2021-08-22] MEDS: Insulin GLARGINE 100 un/ml 10 ml VIAL SUBCUT SCH (21:35)
[2021-08-23 06:05] LABS: Hematocrit 25 % (42-52); Hemoglobin 8.1 g/dL (14.0-18.0); Mean Corpuscular HGB Conc 33 g/dL (31-36); Mean Corpuscular Hemoglobin 33 pg (27-31); Mean Corpuscular Volume 101 fL (80-94); Mean Platelet Volume 7.6 fL (7.4-10.4); Platelet Count 297 10^3/uL (150-450); Red Blood Count 2.44 10^6 /uL (4.18-5.48); Red Cell Distribution Width 17 % (10-15); White Blood Count 25.1 10^3/uL (3.5-10.8)
[2021-08-23 06:23] LABS: INR 2.02 (0.86-1.15)
[2021-08-23 06:24] LABS: Albumin 2.3 g/dL (3.2-5.2); Albumin/Globulin Ratio 0.7 (1-3); Calcium 7.2 mg/dL (8.6-10.3); Globulin 3.5 g/dL (2-4); Potassium 3.8 mmol/L (3.5-5.0); Total Protein 5.8 g/dL (6.4-8.9); eGFR CKD-EPI 57.5 (>60)
[2021-08-23 07:45] LABS: Total Bilirubin 23.9 mg/dL (0.2-1.0)
[2021-08-23] MEDS ORDERED: Phytonadione Oral Solution 5 MG/25 ML UDC PO ONE (08:59)
[2021-08-23] MEDS ORDERED: NS 0.9% 500 ml BAG 500 ML IV ONE (09:02)
[2021-08-23] MEDS: Multivitamins/Minerals TAB PO SCH (09:14)
[2021-08-23] MEDS: Calcium Carb (TUMS) 500 mg CHEW TAB PO SCH (09:14)
[2021-08-23] MEDS: Calcium/Vitamin D TAB 250/125 TAB PO SCH ×2 (09:14→20:27)
[2021-08-23] MEDS ORDERED: Albumin Human 25% 12.5 GM/50 ML BTL IV ONE ×3 (09:30→13:56)
[2021-08-23] MEDS ORDERED: Phytonadione 10 mg in 50 mL NS over 30 min IV ONE (10:30)
[2021-08-23 12:04] LABS: Hematocrit 23 % (42-52); Hemoglobin 7.7 g/dL (14.0-18.0); Mean Corpuscular HGB Conc 33 g/dL (31-36); Mean Corpuscular Hemoglobin 34 pg (27-31); Mean Corpuscular Volume 103 fL (80-94); Mean Platelet Volume 8.1 fL (7.4-10.4); Platelet Count 249 10^3/uL (150-450); Red Blood Count 2.25 10^6 /uL (4.18-5.48); Red Cell Distribution Width 17 % (10-15)
[2021-08-23 14:12] LABS: Glucose, BF 207 mg/dL
[2021-08-23 14:14] LABS: Albumin, BF 0.4 g/dL; Fluid Type, Albumin PERITONEAL; Fluid Type, Protein, Total PERITONEAL; Total Protein, BF 0.8 g/dL
[2021-08-23] MEDS ORDERED: Octreotide Acetate 50 MCG in NS 0.9% 50 ML 50 ML IV ONE (17:23)
[2021-08-23] MEDS: Octreotide Acetate 500 MCG in NS 0.9% 100 ml BAG 100 ML IV SCH (18:36)
[2021-08-23] MEDS: Insulin GLARGINE 100 un/ml 10 ml VIAL SUBCUT SCH (20:29)
[2021-08-24] MEDS: Octreotide Acetate 500 MCG in NS 0.9% 100 ml BAG 100 ML IV SCH ×2 (05:06→13:55)
[2021-08-24 07:48] LABS: Hematocrit 21 % (42-52); Hemoglobin 6.9 g/dL (14.0-18.0); Mean Corpuscular HGB Conc 33 g/dL (31-36); Mean Corpuscular Hemoglobin 34 pg (27-31); Mean Corpuscular Volume 102 fL (80-94); Mean Platelet Volume 7.9 fL (7.4-10.4); Platelet Count 238 10^3/uL (150-450); Red Blood Count 2.03 10^6 /uL (4.18-5.48); Red Cell Distribution Width 16 % (10-15); White Blood Count 26.8 10^3/uL (3.5-10.8)
[2021-08-24 07:52] LABS: INR 1.64 (0.86-1.15)
[2021-08-24 08:23] LABS: Albumin 2.4 g/dL (3.2-5.2); Albumin/Globulin Ratio 0.7 (1-3); Calcium 7.3 mg/dL (8.6-10.3); Globulin 3.3 g/dL (2-4); Potassium 3.9 mmol/L (3.5-5.0); Total Protein 5.7 g/dL (6.4-8.9); eGFR CKD-EPI 34.5 (>60)
[2021-08-24 08:30] LABS: Total Bilirubin 24.8 mg/dL (0.2-1.0)
[2021-08-24] MEDS: Calcium Carb (TUMS) 500 mg CHEW TAB PO SCH (08:30)
[2021-08-24] MEDS: Multivitamins/Minerals TAB PO SCH (08:31)
[2021-08-24] MEDS: Calcium/Vitamin D TAB 250/125 TAB PO SCH ×2 (08:31→20:07)
[2021-08-24] MEDS ORDERED: Albumin Human 25% 100 GM/400 ML BTL IV ONE (10:00)
[2021-08-24 10:08] LABS: Phosphorus 3.2 mg/dL (2.5-5.0)
[2021-08-24 10:09] LABS: Magnesium 2.2 mg/dL (1.9-2.7)
[2021-08-24] MEDS: Albumin Human 25% 25 GM/100 ML BTL IV ONE ×2 (11:23→13:50)
[2021-08-24] MEDS: Insulin GLARGINE 100 un/ml 10 ml VIAL SUBCUT SCH (20:08)
[2021-08-24] MEDS: Albumin Human 25% 25 GM/100 ML BTL IV SCH ×2 (21:21→23:23)
[2021-08-24 22:01] LABS: Hematocrit 25 % (42-52); Hemoglobin 8.5 g/dL (14.0-18.0); Mean Corpuscular HGB Conc 33 g/dL (31-36); Mean Corpuscular Hemoglobin 32 pg (27-31); Mean Corpuscular Volume 95 fL (80-94); Mean Platelet Volume 8.1 fL (7.4-10.4); Platelet Count 207 10^3/uL (150-450); Red Blood Count 2.67 10^6 /uL (4.18-5.48); Red Cell Distribution Width 20 % (10-15); White Blood Count 28.1 10^3/uL (3.5-10.8)
[2021-08-25 00:39] LABS: Urine Appearance Cloudy; Urine Bilirubin 2+ (Negative); Urine Blood 1+ (Negative); Urine Color Amber; Urine Glucose 1+(50 mg/dL) (Negative); Urine Ketones Negative (Negative); Urine Nitrite Negative (Negative); Urine Protein 1+(30 mg/dL) (Negative); Urine Specific Gravity 1.018 (1.002-1.030); Urine Urobilinogen Positive (Negative)
[2021-08-25 00:59] LABS: Urine Bacteria 1+ (Absent); Urine Granular Casts Present (Absent); Urine Red Blood Cell 3+(>10/hpf) (Absent); Urine Renal Epithelial Cells Present (Absent); Urine Squamous Epithelial Cell Present (Absent); Urine White Blood Cell 3+(>20/hpf) (Absent)
[2021-08-25] MEDS: Albumin Human 25% 25 GM/100 ML BTL IV SCH (01:34)
[2021-08-25] MEDS: Octreotide Acetate 500 MCG in NS 0.9% 100 ml BAG 100 ML IV SCH ×2 (04:17→15:15)
[2021-08-25 06:16] LABS: Hematocrit 21 % (42-52); Hemoglobin 7.1 g/dL (14.0-18.0); Mean Corpuscular HGB Conc 34 g/dL (31-36); Mean Corpuscular Hemoglobin 32 pg (27-31); Mean Corpuscular Volume 96 fL (80-94); Platelet Count 172 10^3/uL (150-450); Red Cell Distribution Width 21 % (10-15); White Blood Count 21.4 10^3/uL (3.5-10.8)
[2021-08-25 06:24] LABS: INR 1.93 (0.86-1.15)
[2021-08-25 06:28] LABS: Albumin 3.4 g/dL (3.2-5.2); Albumin/Globulin Ratio 1.5 (1-3); Calcium 7.8 mg/dL (8.6-10.3); Globulin 2.3 g/dL (2-4); Phosphorus 2.7 mg/dL (2.5-5.0); Potassium 3.9 mmol/L (3.5-5.0); Total Protein 5.7 g/dL (6.4-8.9); eGFR CKD-EPI 33.8 (>60)
[2021-08-25 06:45] LABS: Magnesium 2.4 mg/dL (1.9-2.7); Total Bilirubin 25.6 mg/dL (0.2-1.0)
[2021-08-25] MEDS ORDERED: Albumin Human 25% 25 GM/100 ML BTL IV SCH (07:30)
[2021-08-25] MEDS: Multivitamins/Minerals TAB PO SCH (08:16)
[2021-08-25] MEDS: Calcium Carb (TUMS) 500 mg CHEW TAB PO SCH (08:16)
[2021-08-25] MEDS: Calcium/Vitamin D TAB 250/125 TAB PO SCH (08:16)
[2021-08-25] MEDS ORDERED: Bumetanide IV 0.25 MG/ML 4 ml VIAL (1 mg) SLOW PUSH ONE (09:25)
[2021-08-25 14:25] LABS: Hematocrit 23 % (42-52); Hemoglobin 7.7 g/dL (14.0-18.0); Mean Corpuscular HGB Conc 34 g/dL (31-36); Mean Corpuscular Hemoglobin 33 pg (27-31); Mean Corpuscular Volume 97 fL (80-94); Mean Platelet Volume 7.9 fL (7.4-10.4); Platelet Count 188 10^3/uL (150-450); Red Blood Count 2.34 10^6 /uL (4.18-5.48); Red Cell Distribution Width 21 % (10-15); White Blood Count 24.3 10^3/uL (3.5-10.8)
[2021-08-25] MEDS ORDERED: PEG 3000 GI LAVAGE 1 GALLON PO ONE (16:00)
[2021-08-25 21:47] VITALS: BP 122/73
== END 2021-08-25 21:30 | disposition short-term general hospital (02) | DRG 264 ==
LOC: MED 12:49 → ED 12:49 → SUATTDRO 17:51 → MED 23:44
PROVIDERS: ADMIT Hospitalist; ATTEND Internal Medicine

== ENCOUNTER 2021-12-25 17:49 | Inpatient (IN) ==
[2021-12-25 20:30] LABS: ABS Eosinophils 0.1 10^3/ul (0-0.6); ABS Lymphocytes 0.8 10^3/ul (1.0-4.8); ABS Monocytes 0.9 10^3/ul (0-0.8); ABS Neutrophils 4.5 10^3/ul (1.5-7.7); Eosinophil % 1.4 %; Hematocrit 32 % (42-52); Hemoglobin 10.9 g/dL (14.0-18.0); Lymphocyte % 13.1 %; Mean Corpuscular HGB Conc 34 g/dL (31-36); Mean Corpuscular Hemoglobin 27 pg (27-31); Mean Corpuscular Volume 80 fL (80-94); Mean Platelet Volume 7.4 fL (7.4-10.4); Platelet Count 269 10^3/uL (150-450); Red Blood Count 3.99 10^6 /uL (4.18-5.48); Red Cell Distribution Width 13 % (10-15); White Blood Count 6.3 10^3/uL (3.5-10.8)
[2021-12-25 20:51] LABS: Albumin/Globulin Ratio 1.6 (1-3); Calcium 10.5 mg/dL (8.6-10.3); Globulin 3.1 g/dL (2-4); Potassium 3.6 mmol/L (3.5-5.0); Total Bilirubin 1.4 mg/dL (0.2-1.0); Total Protein 8.1 g/dL (6.4-8.9); eGFR CKD-EPI 58.5 (>60)
[2021-12-25] MEDS ORDERED: Dulaglutide (NF) 0.75 MG/0.5 ML SYRINGE SUBCUT SCH (23:45)
[2021-12-26] MEDS ORDERED: Senna TAB 8.6 mg TAB PO PRN (00:50)
[2021-12-26 00:53] LABS: Alcohol, S < 13 mg/dL (<13); Blood Urea Nitrogen 20 mg/dL (6-24); CO2 Carbon Dioxide 27 mmol/L (22-32); Chloride 75 mmol/L (101-111); Glucose 123 mg/dL (70-100); eGFR CKD-EPI 64.2 (>60)
[2021-12-26 00:56] LABS: Anion Gap 12 mmol/L (2-11); Sodium 114 mmol/L (135-145)
[2021-12-26 01:16] LABS: Osmolality Serum 244 mOsm/kg (275-295)
[2021-12-26] MEDS ORDERED: Dextrose 50% Syringe 50 ml 25 GM/50 ML SYRINGE IV PUSH PRN (02:12)
[2021-12-26 02:35] LABS: Magnesium 1.8 mg/dL (1.9-2.7)
[2021-12-26 03:24] LABS: Urine Osmo 415 mOsm/kg (150-1150)
[2021-12-26 03:37] LABS: Urine Appearance Cloudy; Urine Bacteria Absent (Absent); Urine Bilirubin Negative (Negative); Urine Blood 2+ (Negative); Urine Color Yellow; Urine Glucose Negative (Negative); Urine Ketones Trace (Negative); Urine Nitrite Negative (Negative); Urine Protein 2+(100 mg/dL) (Negative); Urine Red Blood Cell Trace(0-2/hpf) (Absent); Urine Specific Gravity 1.014 (1.002-1.030); Urine Squamous Epithelial Cell Present (Absent); Urine Urobilinogen Negative (Negative); Urine White Blood Cell 3+(>20/hpf) (Absent)
[2021-12-26 05:53] LABS: Calcium 9.2 mg/dL (8.6-10.3); eGFR CKD-EPI 67.8 (>60)
[2021-12-26] MEDS ORDERED: KCL 20 MEQ/100 ML IVPREMIX 20 MEQ/100 ML BAG IV SCH (06:00)
[2021-12-26] MEDS ORDERED: Potassium Chlor 20 meq TAB.ER PO ONE ×2 (07:15→07:47)
[2021-12-26] MEDS: CMCS:Pravastatin 20 mg TAB (NF) PO SCH (07:36)
[2021-12-26] MEDS: VALGANCICLOVIR 450 MG PO SCH (07:37)
[2021-12-26] MEDS: Aspirin EC 81 mg TAB.EC (enteric coated) PO SCH (07:37)
[2021-12-26] MEDS ORDERED: Magnesium Sulfate IV 1GM/100ML 1 GM/100 ML BAG IV ONE (07:48)
[2021-12-26 08:25] LABS: Magnesium 1.6 mg/dL (1.9-2.7); Phosphorus 4.1 mg/dL (2.5-5.0); Potassium 3.1 mmol/L (3.5-5.0); eGFR CKD-EPI 70.4 (>60)
[2021-12-26] MEDS ORDERED: Magnesium Sulfate 2 gm BAG 2 GM/50 ML BAG IVPB ONE (08:39)
[2021-12-26] MEDS ORDERED: NS 0.9% 500 ml BAG 500 ML IV SCH (09:00)
[2021-12-26] MEDS: Polyethylene Glycol 3350 17 GM PACKET PO PRN (09:05)
[2021-12-26] MEDS: Enoxaparin 40 MG/0.4 ML SYR SUBCUT SCH (12:37)
[2021-12-26 13:12] LABS: CO2 Carbon Dioxide 21 mmol/L (22-32); Calcium 9.2 mg/dL (8.6-10.3); Chloride 84 mmol/L (101-111); Magnesium 2.9 mg/dL (1.9-2.7)
[2021-12-26 13:18] LABS: Blood Urea Nitrogen 19 mg/dL (6-24); Glucose 191 mg/dL (70-100); eGFR CKD-EPI 73.9 (>60)
[2021-12-26 13:27] LABS: Sodium 116 mmol/L (135-145)
[2021-12-26 13:54] LABS: Anion Gap 11 mmol/L (2-11)
[2021-12-26 17:00] LABS: Calcium 9.7 mg/dL (8.6-10.3); Direct Bilirubin Redraw 0.2 mg/dL (0.03-0.18); Potassium 4.2 mmol/L (3.5-5.0); eGFR CKD-EPI 64.2 (>60)
[2021-12-26] MEDS ORDERED: Nicotine GUM 2MG FRUIT FLAVOR PO PRN (17:15)
[2021-12-26] MEDS: Nicotine PATCH 14 MG/24 HR PATCH TRANSDERM SCH (17:41)
[2021-12-26] MEDS ORDERED: Calcium Carb (TUMS) 500 mg CHEW TAB PO PRN (21:39)
[2021-12-26] MEDS ORDERED: Desmopressin Acetate 2 MCG in NS 0.9% 50 ML 50 ML IVPB ONE (23:45)
[2021-12-27 03:25] LABS: Calcium 9.3 mg/dL (8.6-10.3); Potassium 3.7 mmol/L (3.5-5.0)
[2021-12-27 03:30] LABS: eGFR CKD-EPI 63.6 (>60)
[2021-12-27 06:20] LABS: ABS Lymphocytes 0.6 10^3/ul (1.0-4.8); ABS Monocytes 0.7 10^3/ul (0-0.8); ABS Neutrophils 3.8 10^3/ul (1.5-7.7); Eosinophil % 0.8 %; Hematocrit 29 % (42-52); INR 1.01 (0.86-1.15); Mean Corpuscular HGB Conc 34 g/dL (31-36); Mean Corpuscular Hemoglobin 28 pg (27-31); Mean Corpuscular Volume 80 fL (80-94); Mean Platelet Volume 7.2 fL (7.4-10.4); Platelet Count 240 10^3/uL (150-450); Red Blood Count 3.63 10^6 /uL (4.18-5.48); Red Cell Distribution Width 13 % (10-15); White Blood Count 5.1 10^3/uL (3.5-10.8)
[2021-12-27 07:13] LABS: Albumin 4.6 g/dL (3.2-5.2); Albumin/Globulin Ratio 1.6 (1-3); Calcium 9.4 mg/dL (8.6-10.3); Direct Bilirubin 0.1 mg/dL (0.03-0.18); Globulin 2.9 g/dL (2-4); Indirect Bilirubin 0.6 mg/dL (0.3-1.0); Magnesium 2.1 mg/dL (1.9-2.7); Phosphorus 3.4 mg/dL (2.5-5.0); Potassium 3.4 mmol/L (3.5-5.0); Total Bilirubin 0.7 mg/dL (0.2-1.0); Total Protein 7.5 g/dL (6.4-8.9); eGFR CKD-EPI 65.9 (>60)
[2021-12-27] MEDS ORDERED: Potassium Chlor 20 meq TAB.ER PO ONE (07:32)
[2021-12-27] MEDS: KCL 10 MEQ/50 ML IVPREMIX 10 MEQ/50 ML BAG IV SCH ×2 (07:54→10:00)
[2021-12-27] MEDS: Aspirin EC 81 mg TAB.EC (enteric coated) PO SCH (08:51)
[2021-12-27] MEDS: CMCS:Pravastatin 20 mg TAB (NF) PO SCH (08:51)
[2021-12-27] MEDS: Nicotine PATCH 14 MG/24 HR PATCH TRANSDERM SCH (08:52)
[2021-12-27] MEDS: VALGANCICLOVIR 450 MG PO SCH (09:58)
[2021-12-27] MEDS: Enoxaparin 40 MG/0.4 ML SYR SUBCUT SCH (12:31)
[2021-12-27 12:56] LABS: Calcium 9.6 mg/dL (8.6-10.3); Potassium 4.8 mmol/L (3.5-5.0)
[2021-12-27 13:01] LABS: eGFR CKD-EPI 71.7 (>60)
[2021-12-27 20:25] LABS: Calcium 10.2 mg/dL (8.6-10.3); Potassium 4.9 mmol/L (3.5-5.0); eGFR CKD-EPI 67.8 (>60)
[2021-12-28 06:17] LABS: ABS Lymphocytes 0.8 10^3/ul (1.0-4.8); ABS Monocytes 0.6 10^3/ul (0-0.8); ABS Neutrophils 3.1 10^3/ul (1.5-7.7); Hematocrit 28 % (42-52); Hemoglobin 9.6 g/dL (14.0-18.0); Lymphocyte % 17.4 %; Mean Corpuscular HGB Conc 34 g/dL (31-36); Mean Corpuscular Hemoglobin 28 pg (27-31); Mean Corpuscular Volume 81 fL (80-94); Mean Platelet Volume 7.2 fL (7.4-10.4); Nucleated Red Blood Cells % 0.1; Platelet Count 249 10^3/uL (150-450); Red Blood Count 3.45 10^6 /uL (4.18-5.48); Red Cell Distribution Width 13 % (10-15); White Blood Count 4.6 10^3/uL (3.5-10.8)
[2021-12-28 06:20] LABS: INR 0.99 (0.86-1.15)
[2021-12-28 06:34] LABS: Albumin 4.5 g/dL (3.2-5.2); Globulin 2.3 g/dL (2-4); Magnesium 1.7 mg/dL (1.9-2.7); Potassium 4.4 mmol/L (3.5-5.0); Total Bilirubin 0.6 mg/dL (0.2-1.0); Total Protein 6.8 g/dL (6.4-8.9)
[2021-12-28] MEDS: Aspirin EC 81 mg TAB.EC (enteric coated) PO SCH (08:55)
[2021-12-28] MEDS: CMCS:Pravastatin 20 mg TAB (NF) PO SCH (08:56)
[2021-12-28] MEDS: Nicotine PATCH 14 MG/24 HR PATCH TRANSDERM SCH (08:57)
[2021-12-28] MEDS: VALGANCICLOVIR 450 MG PO SCH (08:57)
[2021-12-28] MEDS: Enoxaparin 40 MG/0.4 ML SYR SUBCUT SCH (12:47)
[2021-12-28] MEDS: Polyethylene Glycol 3350 17 GM PACKET PO PRN (13:38)
[2021-12-29 06:10] LABS: ABS Eosinophils 0.1 10^3/ul (0-0.6); ABS Lymphocytes 0.9 10^3/ul (1.0-4.8); ABS Monocytes 0.6 10^3/ul (0-0.8); ABS Neutrophils 3.2 10^3/ul (1.5-7.7); Eosinophil % 1.2 %; Hematocrit 29 % (42-52); Hemoglobin 9.9 g/dL (14.0-18.0); Lymphocyte % 18.5 %; Mean Corpuscular HGB Conc 35 g/dL (31-36); Mean Corpuscular Hemoglobin 28 pg (27-31); Mean Corpuscular Volume 82 fL (80-94); Mean Platelet Volume 7.3 fL (7.4-10.4); Nucleated Red Blood Cells % 0.1; Platelet Count 260 10^3/uL (150-450); Red Blood Count 3.51 10^6 /uL (4.18-5.48); Red Cell Distribution Width 13 % (10-15); White Blood Count 4.7 10^3/uL (3.5-10.8)
[2021-12-29 06:41] LABS: Albumin 4.3 g/dL (3.2-5.2); Albumin/Globulin Ratio 1.6 (1-3); Globulin 2.7 g/dL (2-4); Magnesium 1.6 mg/dL (1.9-2.7); Total Bilirubin 0.7 mg/dL (0.2-1.0); eGFR CKD-EPI 59.4 (>60)
[2021-12-29] MEDS ORDERED: Magnesium Sulfate 2 gm BAG 2 GM/50 ML BAG IVPB ONE (07:25)
[2021-12-29] MEDS: Aspirin EC 81 mg TAB.EC (enteric coated) PO SCH (08:48)
[2021-12-29] MEDS: CMCS:Pravastatin 20 mg TAB (NF) PO SCH (08:49)
[2021-12-29] MEDS: Nicotine PATCH 14 MG/24 HR PATCH TRANSDERM SCH (08:50)
[2021-12-29] MEDS: Polyethylene Glycol 3350 17 GM PACKET PO PRN (08:51)
[2021-12-29] MEDS: VALGANCICLOVIR 450 MG PO SCH (08:51)
[2021-12-29] MEDS: Enoxaparin 40 MG/0.4 ML SYR SUBCUT SCH (12:21)
[2021-12-29 14:12] LABS: Tacrolimus <1.0 ng/mL
[2021-12-30 06:25] LABS: ABS Lymphocytes 1.1 10^3/ul (1.0-4.8); ABS Monocytes 0.6 10^3/ul (0-0.8); ABS Neutrophils 3.4 10^3/ul (1.5-7.7); Eosinophil % 0.8 %; Hematocrit 27 % (42-52); Hemoglobin 9.1 g/dL (14.0-18.0); Lymphocyte % 20.8 %; Mean Corpuscular HGB Conc 33 g/dL (31-36); Mean Corpuscular Hemoglobin 27 pg (27-31); Mean Corpuscular Volume 82 fL (80-94); Mean Platelet Volume 7.1 fL (7.4-10.4); Platelet Count 259 10^3/uL (150-450); Red Blood Count 3.34 10^6 /uL (4.18-5.48); Red Cell Distribution Width 13 % (10-15); White Blood Count 5.1 10^3/uL (3.5-10.8)
[2021-12-30 07:19] LABS: Albumin/Globulin Ratio 1.6 (1-3); Calcium 9.6 mg/dL (8.6-10.3); Globulin 2.5 g/dL (2-4); Magnesium 1.7 mg/dL (1.9-2.7); Potassium 4.1 mmol/L (3.5-5.0); Total Bilirubin 0.6 mg/dL (0.2-1.0); Total Protein 6.5 g/dL (6.4-8.9); eGFR CKD-EPI 61.5 (>60)
[2021-12-30] MEDS ORDERED: Magnesium Sulfate IV 3 GM in NS 0.9% 100 ml BAG 100 ML IVPB ONE (07:20)
[2021-12-30] MEDS ORDERED: Magnesium Sulfate 2 GM IV (Premix) IVPB ONE (08:00)
[2021-12-30] MEDS ORDERED: Magnesium Sulfate 1 GM IV 1 GM/100 ML BAG IV ONE (09:00)
[2021-12-30] MEDS: Nicotine PATCH 14 MG/24 HR PATCH TRANSDERM SCH (09:24)
[2021-12-30] MEDS: Polyethylene Glycol 3350 17 GM PACKET PO PRN (09:24)
[2021-12-30] MEDS: Aspirin EC 81 mg TAB.EC (enteric coated) PO SCH (09:24)
[2021-12-30] MEDS: CMCS:Pravastatin 20 mg TAB (NF) PO SCH (09:24)
[2021-12-30] MEDS: VALGANCICLOVIR 450 MG PO SCH (09:34)
[2021-12-30] MEDS: Enoxaparin 40 MG/0.4 ML SYR SUBCUT SCH (12:20)
[2021-12-31 06:34] LABS: Calcium 9.6 mg/dL (8.6-10.3); Magnesium 1.8 mg/dL (1.9-2.7); Potassium 3.9 mmol/L (3.5-5.0); eGFR CKD-EPI 49.8 (>60)
[2021-12-31] MEDS ORDERED: Magnesium Sulfate IV 3 GM in NS 0.9% 100 ml BAG 100 ML IVPB ONE (07:19)
[2021-12-31] MEDS ORDERED: Magnesium Sulfate 2 GM IV (Premix) IVPB ONE (08:00)
[2021-12-31] MEDS: VALGANCICLOVIR 450 MG PO SCH (08:27)
[2021-12-31] MEDS: CMCS:Pravastatin 20 mg TAB (NF) PO SCH (08:27)
[2021-12-31] MEDS: Nicotine PATCH 14 MG/24 HR PATCH TRANSDERM SCH ×2 (08:27→08:31)
[2021-12-31] MEDS: Aspirin EC 81 mg TAB.EC (enteric coated) PO SCH (08:28)
[2021-12-31] MEDS ORDERED: Magnesium Sulfate 1 GM IV 1 GM/100 ML BAG IV ONE (09:00)
[2021-12-31] MEDS ORDERED: Magnesium Sulfate 2 gm BAG 2 GM/50 ML BAG ONE (09:15)
[2021-12-31] MEDS: Enoxaparin 40 MG/0.4 ML SYR SUBCUT SCH (11:42)
[2022-01-01 01:18] VITALS: BP 169/97
[2022-01-02 11:43] LABS: Tacrolimus 3.7 ng/mL
== END 2022-01-01 00:02 | disposition short-term general hospital (02) | DRG 424 ==
LOC: ED 17:49 → EDHOLD 23:19 → SUATTDRO 23:19 → ICU 12-26 02:06 → MEDTELE 12-27 19:02
PROVIDERS: ADMIT Hospitalist; ATTEND Internal Medicine